=== PATIENT | female | born 1990 | race Caucasian/White ===

== ENCOUNTER 2020-01-31 19:38 | Inpatient (IN) | payer OTHER ==
[~2020-01-31 19:38] MED LIST: Iopamidol-370 76% 500 ML 1 ML ONE
[2020-01-31] MEDS ORDERED: Dexamethasone 10 MG/ML VIAL ONE (19:55)
[2020-01-31] MEDS ORDERED: Albuterol 200 PUFF (6.7GM INHALER) ONE (20:03)
[2020-01-31 20:14] LABS: #Basophils 0.1 thou/uL (0.0-0.2); #Eosinphils 0.1 thou/uL (0.0-0.7); #Lymphocytes 1.4 thou/uL (1.20-3.40); #Monocytes 0.4 thou/uL (0.11-0.59); #Neutrophils 6.7 thou/uL (1.40-6.50); %Basophils 0.9 % (0.0-1.0); %Eosinophils 0.7 % (0.0-10.0); %Lymphocytes 16.2 % (21.0-51.0); %Monocytes 4.8 % (0.0-10.0); %Neutrophils 77.4 % (42.0-75.0); Hemoglobin 13.4 g/dL (12.0-16.0); Mean Corpuscular HGB CONC 34.7 g/dL (32.0-36.0); Mean Corpuscular Hemoglobin 30.6 pg (27.0-31.0); Mean Corpuscular Volume 88.3 fL (78.0-98.0); Mean Platelet Volume 7.6 fL (7.4-10.4); Platelet Count 189 thou/uL (130-400); RBC Distribution Width 12.8 % (11.5-14.5); Red Blood Cell (RBC) Count 4.38 mill/uL (4.20-5.40); White Blood Cell (WBC) Count 8.7 thou/uL (4.8-10.8)
[2020-01-31 20:19] LABS: Bacteria/HPF 2+ HPF (None Seen); Bilirubin Negative (Negative); Blood, Urine Negative (Negative); Clarity Clear (Clear); Glucose, Urine (Dipstick) Normal (Negative); Ketone, Urine Negative (Negative); Leukocyte 250 Leu/uL (Negative); Nitrite Negative (Negative); Protein, Urine (Dipstick) Negative (Neg-Trace); RBC/HPF 0-3 HPF (0-3); Specific Gravity, Urine 1.002 (1.002-1.036); Urobilinogen Normal mg/dL (Less than 2)
--- NOTE | 2020-01-31 20:32 | RAD ---
Chest one view HISTORY: Dyspnea. COMPARISON: 05/17/2009. FINDINGS: Cardiac silhouette is magnified by projection. Pulmonary vasculature upper limits of normal . Ill-defined patchy groundglass infiltrate involves each lower lobe. No lobar consolidation or evidenc e of pneumothorax. IMPRESSION : Multifocal bilateral lower lobe infiltrate. Clinical correlation regarding other signs and symptoms o f multifocal viral pneumonia is required.
[2020-01-31 20:34] LABS: ALT (SGPT) 13 U/L (8-55); AST (SGOT) 37 U/L (5-34); Albumin 4.4 g/dL (3.5-5.0); Alkaline Phosphatase 61 U/L (40-110); Anion Gap 13 mmol/L (10-20); BUN (Urea Nitrogen) 5 mg/dL (7.0-18.7); Calc. Creatinine Clearance 0 mL/min (70-130); Calcium 8.5 mg/dL (7.8-10.44); Carbon Dioxide 27 mmol/L (22-29); Chloride 100 mmol/L (98-107); Globulin 3.5 g/dL (2.4-3.5); Glucose 93 mg/dL (70-105); Potassium 3.4 mmol/L (3.5-5.1); Protein, Total 7.9 g/dL (6.0-8.3); Sodium 137 mmol/L (136-145)
[2020-01-31] MEDS ORDERED: Acetaminophen 500 MG TAB ONE (20:54)
[2020-01-31] MEDS ORDERED: Ketorolac Tromethamine 30 MG/ML VIAL ONE (20:54)
[2020-01-31] MEDS ORDERED: Ondansetron PF 4 MG/2 ML Vial ONE (21:03)
[2020-01-31] MEDS ORDERED: Sodium Chloride 0.9% 100 ML ONE (21:10)
[2020-01-31] MEDS ORDERED: cefTRIAXone\\ROCEPHIN 1 GM VIAL ONE (21:10)
--- NOTE | 2020-01-31 22:23 | CT ---
CT arteriogram chest with IV contrast and 3-D imaging HISTORY: Dyspnea. Elevated d-dimer. FINDINGS: There is good contrast opacification pulmonary arteries and thoracic aorta with normal bran rashmi of the great vessels at the aortic arch. Prominent scattered peripheral bilateral patchy areas of groundglass infiltrate involve each lung. No nspecific, reactive appearing lymph nodes are scattered about the mediastinum. Minimal left pleural fluid. No evidence of pneumothorax. IMPRESSION : No evidence of pulmonary embolus. CT findings of COVID pneumonitis.
[2020-01-31 22:45] LABS: SARS-CoV-2 NAA Rapid Test Not Detected (NotDetected)
--- NOTE | 2020-01-31 22:56 | PDOC.FPRHP ---
- History of Present Illness Chief Complaint: SOB History of Present Illness: Pt is a 29 yo F with PMH, anxiety of hypothyroidism who presents with chief complaint of SOB. She endorses worsening cough and SOB. She has associated congestion, PIMENTEL, fever. She states her symptoms started on 01/24. She has several COVID tests over the last few weeks and all were negative. She has many COVID exposures including her , nephew and 5 close co-workers. 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1, Has R ocular prosthesis FHx:non contributory Social: tobacco use for 10 years occasional marijuana and etoh - Review of Systems General: reports: fever/chills ENT: reports: nasal congestion, rhinorrhea Respiratory: reports: cough, shortness of breath, exercise intolerance Cardiovascular: denies: chest pain, palpitation, edema Gastrointestinal: denies: vomiting, diarrhea, abdominal pain Skin: denies: rashes, lesions Musculoskeletal: denies: swelling Neurological: denies: seizure, weakness - Vital signs BP: 123/80 HR: 93 RR: 18 Tmax: 101.3 Pox: 96% on 2L Wt: 90.2kg - Physical Exam Constitutional: NAD, awake, alert and oriented HEENT: normocephalic and atraumatic, EOMI, grossly normal vision, grossly normal hearing Neck: supple, trachea midline Chest: no-tender to palpation, no lesions Heart: RRR, normal S1/S2 Lungs: good air movement, other (bilat basilar insp fine crackles) Abdomen: soft, non-tender Musculoskeletal: normal structure Neurological: no focal deficit, CN II-XII intact, normal sensation Skin: no rash/lesions, good turgor Heme/Lymphatic: no unusual bruising or bleeding Psychiatric: normal mood and affect, good judgment and insight FMR H&P: Results - Labs Result Diagrams: 02/01/20 05:17 02/01/20 05:17 Lab results: WBC 8.7 thou/uL (4.8-10.8) 01/31/20 19:50 Hgb 13.4 g/dL (12.0-16.0) 01/31/20 19:50 Hct 38.7 % (36.0-47.0) 01/31/20 19:50 MCV 88.3 fL (78.0-98.0) 01/31/20 19:50 Plt Count 189 thou/uL (130-400) 01/31/20 19:50 Neutrophils % 77.4 % (42.0-75.0) H 01/31/20 19:50 Sodium 137 mmol/L (136-145) 01/31/20 19:50 Potassium 3.4 mmol/L (3.5-5.1) L 01/31/20 19:50 Chloride 100 mmol/L (98-107) 01/31/20 19:50 Carbon Dioxide 27 mmol/L (22-29) 01/31/20 19:50 BUN 5 mg/dL (7.0-18.7) L 01/31/20 19:50 Creatinine 1.06 mg/dL (0.6-1.1) 01/31/20 19:50 Glucose 93 mg/dL (70-105) 01/31/20 19:50 Lactic Acid 0.8 mmol/L (0.5-2.2) 01/31/20 19:50 Calcium 8.5 mg/dL (7.8-10.44) 01/31/20 19:50 Total Bilirubin 1.0 mg/dL (0.2-1.2) 01/31/20 19:50 AST 37 U/L (5-34) H 01/31/20 19:50 ALT 13 U/L (8-55) 01/31/20 19:50 Alkaline Phosphatase 61 U/L (40-110) 01/31/20 19:50 Serum Total Protein 7.9 g/dL (6.0-8.3) 01/31/20 19:50 Albumin 4.4 g/dL (3.5-5.0) 01/31/20 19:50 Urine Ketones Negative mg/dL (Negative) 01/31/20 19:45 Urine Blood Negative (Negative) 01/31/20 19:45 Urine Nitrite Negative (Negative) 01/31/20 19:45 Ur Leukocyte Esterase 250 Sara/uL (Negative) A 01/31/20 19:45 Urine RBC 0-3 HPF (0-3) 01/31/20 19:45 Urine WBC 4-6 HPF (0-3) A 01/31/20 19:45 Ur Squamous Epith Cells 4-6 HPF (0-3) A 01/31/20 19:45 Urine Bacteria 2+ HPF (None Seen) A 01/31/20 19:45 FMR H&P: A/P - Plan #Acute Hypoxic respiratory failure 2/2 likely COVID PNA -negative COVID today in the ED, but many close contacts -CT and XR are suggestive of COVID PNA. likely false negative -symptom onset 01/25/20 -satting well on 2L of O2, new oxygen requirement -s/p Rocephin and 10mg Decadron in ED -f/u COVID labs -continue Decadron 6mg daily -f/u flu -consider retest in a few days #Hypothyroidism -aware, continue home meds #Anxiety -aware, continue home meds Dispo: admit to inpatient medical Fluids: KVO Diet: Regular DVT Ppx: Lovenox Code: FULL FMR H&P: Upper Level - Plan Date/Time: 01/31/20 7490 MACIE Shields PGY3, have evaluated this patient and agree with findings/plan as outlined by campus interviews intern resident. Pertinent changes/additions are listed here. 29-year-old female with past medical history of anxiety and hypothyroidism presents for shortness of breath. She has 1 week history increasing fevers headaches chills cough and congestion. She has significant exposure to Covid positive people with her her nephew her best friend and 5 close cowork ers. She has been tested several times in the last week but has tested negative so far. 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 Habits include occasional alcohol and occasional marijuana, former smoker for 8 years. On physical exam the patient is hypoxic on respiratory room air and currently satting 96% on 2 L. Otherwise vitals within normal limits. She does not appear to be in any distress, heart has regular rate and rhythm with no murmur, lungs have bilateral inspiratory fine crackles in lung bases but with good air movement Assessment and plan Hypoxic respiratory failure secondary to viral pneumonia Suspect COVID-19 infection despite several negative tests considering imaging findings, exam and impressive exposure history. Chest x-ray and CT angio are suggestive of viral pneumonia with no evidence of pulmonary embolism. Troponin negative. Will admit for respiratory support, give steroids daily, will give Lovenox for thromboembolism prophylaxis as if she were positive, consider retesting in a few days. Will add flu swab, covid inflammatory labs, and procal. Patient is status post 1 dose of Rocephin. Hold further ABX for now. Hypokalemia Replace and recheck Hypothyroid Continue home medications Anxiety Continue home medications Code-full IV fluids-KVO PCP-city call Disposition-inpatient medical, anticipate 2 midnights at least DVT prophylaxis-Lovenox Addendum - Attending - Attending Attestation Date/Time: 02/01/20 1779 I personally evaluated the patient and discussed the management with Dr. Etienne/Favian. I agree with the History, Examination, Assessment and Plan documented above with any addition or exceptions noted below. Patient here with acute hypoxic resp failure 2/2 viral pneumonitis. She has multiple exposures to COVID, yet the several tests she supposedly had done outpatient and her PCR test here have been negative. Regardless, she has evidence of viral pneumonia on CXR. Labs overall reassuring. She will be treated symptomatically, wean O2 as tolerated. Steroids. Will test for antibodies to see if this is possibly a longer range postinfectious picture and maybe she had COVID days before she realized. RVP to rule out other viral causes of her pneumonitis as we have to entertain other diagnoses than COVID. Finally, this could represent a false negative test, but that becomes less likely with multiple negative tests that she has supposedly received.
[2020-01-31] MEDS ORDERED: Senokot S 8.6-50 MG TAB PO PRN (23:02)
[2020-01-31] MEDS ORDERED: Ondansetron PF 4 MG/2 ML Vial IVP PRN (23:02)
[2020-01-31] MEDS ORDERED: Acetaminophen 325 MG TAB PO PRN (23:02)
[2020-01-31] MEDS ORDERED: Ondansetron ODT 4 MG TAB PO PRN (23:02)
[2020-01-31] MEDS ORDERED: Calcium Carbonate 500 MG ChewTAB PO PRN (23:02)
[2020-02-01] MEDS ORDERED: Albuterol 200 PUFF (6.7GM INHALER) INH PRN (00:45)
[2020-02-01] MEDS ORDERED: Potassium Chloride 20 MEQ TAB PO SCH (00:45)
[2020-02-01 00:52] LABS: Magnesium 2.2 mg/dL (1.6-2.6); Phosphorus 2.7 mg/dL (2.3-4.7)
[2020-02-01 01:07] VITALS: BMI 34.0
[2020-02-01] MEDS: Levothyroxine Sodium 125 MCG TAB PO SCH (05:16)
--- NOTE | 2020-02-01 05:43 | PDOC.FM ---
- Subjective Subjective: Pt resting in bed this AM. No acute events overnight. States that she feels that her breathing is better this AM with the NC and steroids but still c/o of a non- productive cough. Informs me that now her GM is in the hospital with COVID+ PNA. - Objective Vital Signs & Weight: Vital Signs (12 hours) Temp Pulse Resp BP Pulse Ox 02/01/20 00:47 98.9 F 89 18 99/67 97 Weight Weight 95.663 kg Result Diagrams: 02/01/20 05:17 02/01/20 05:17 Phys Exam - Physical Examination Constitutional: NAD HEENT: PERRLA Neck: supple Respiratory: no wheezing, no rales, no rhonchi, clear to auscultation bilateral Cardiovascular: RRR, no significant murmur, no rub Gastrointestinal: soft, non-tender, no distention, positive bowel sounds Musculoskeletal: no edema Neurological: moves all 4 limbs Psychiatric: normal affect Skin: normal turgor Dx/Plan - Plan Plan: #Acute Hypoxic respiratory failure 2/2 likely COVID PNA -Negative COVID test, however patient had many close contacts including family members and co-workers -CT and XR are suggestive of COVID PNA. likely false negative -Was satting well on 2L of O2 decreased to RA to see how patient does -Flu negative -D-dimer 0.81-->0.79 -LDH 530 -CRP 5 -Procal 0.03-->0.03 -continue Decadron 6mg daily -consider retest for COVID in a few days -Respiratory Viral Panel ordered #Hypothyroidism -aware, continue home meds #Anxiety -aware, continue home meds Fluids: KVO Diet: Regular DVT PPX: Lovenox Code: FULL Dispo: Admitted to inpatient medical. Will continue to monitor respiratory status. If see improvement later today may be stable enough for d/c. Addendum - Attending - Attending Attestation Date/Time: 02/01/20 [id number] I personally evaluated the patient and discussed the management with Dr. Cade. I agree with the History, Examination, Assessment and Plan documented above with any addition or exceptions noted below. See H&P addendum for today's full attestation.
[2020-02-01 05:47] LABS: #Monocytes 0.3 thou/uL (0.11-0.59); #Neutrophils 6.6 thou/uL (1.40-6.50); %Basophils 0.1 % (0.0-1.0); %Eosinophils 0.5 % (0.0-10.0); %Lymphocytes 12.2 % (21.0-51.0); %Monocytes 3.4 % (0.0-10.0); %Neutrophils 83.8 % (42.0-75.0); Hemoglobin 12.2 g/dL (12.0-16.0); Mean Corpuscular HGB CONC 34.5 g/dL (32.0-36.0); Mean Corpuscular Hemoglobin 30.7 pg (27.0-31.0); Mean Platelet Volume 7.8 fL (7.4-10.4); Platelet Count 176 thou/uL (130-400); RBC Distribution Width 12.8 % (11.5-14.5); Red Blood Cell (RBC) Count 3.98 mill/uL (4.20-5.40); White Blood Cell (WBC) Count 7.8 thou/uL (4.8-10.8)
[2020-02-01 06:10] LABS: ALT (SGPT) 14 U/L (8-55); AST (SGOT) 32 U/L (5-34); Albumin 3.9 g/dL (3.5-5.0); Alkaline Phosphatase 56 U/L (40-110); Anion Gap 13 mmol/L (10-20); BUN (Urea Nitrogen) 6 mg/dL (7.0-18.7); Bilirubin, Total 0.7 mg/dL (0.2-1.2); Calc. Creatinine Clearance 143 mL/min (70-130); Calcium 8.2 mg/dL (7.8-10.44); Carbon Dioxide 24 mmol/L (22-29); Chloride 103 mmol/L (98-107); Globulin 3.4 g/dL (2.4-3.5); Glucose 145 mg/dL (70-105); Potassium 4.4 mmol/L (3.5-5.1); Protein, Total 7.3 g/dL (6.0-8.3); Sodium 136 mmol/L (136-145)
[2020-02-01] MEDS: Enoxaparin Sodium 40 MG/0.4 ML SYRINGE SC SCH ×2 (07:43→21:06)
[2020-02-01] MEDS: Escitalopram Oxalate 10 mg Tablet PO SCH (07:44)
[2020-02-01] MEDS ORDERED: Dexamethasone 4 MG TAB PO SCH (08:00)
[2020-02-01] MEDS ORDERED: REMDESIVIR (EUA) 200 MG in Sodium Chloride 0.9% 250 ML 210 ML IV SCH (08:00)
[2020-02-01] MEDS ORDERED: methylPREDNISolone 4 mg Tablet PO SCH (09:00)
[2020-02-01 13:10] LABS: SARS-CoV-2 MS2 Positive; SARS-CoV-2 N Gene Negative; SARS-CoV-2 S Gene Negative; SARS-CoV-2 by NAA Not Detected (NotDetected); SARS-CoV-2 orf1ab Negative
[2020-02-01] MEDS: Diabetic Tussin 200 MG/10 ML UDCUP PO PRN (14:27)
[2020-02-01 17:28] LABS: SARS-CoV-2 IgG Ab Non-Reactive (NonReactive); SARS-CoV-2 IgG Index 0.11 S/CO (< 1.40)
[2020-02-02] MEDS: Levothyroxine Sodium 125 MCG TAB PO SCH (05:37)
--- NOTE | 2020-02-02 05:40 | PDOC.FM ---
- Subjective Subjective: Pt resting comfortably in bed this AM. No acute events overnight. States that she continues to have a non-productive cough which is drying her throat. She states that she was weaned off of oxygen yesterday but was having some SOB when going to the bathroom so she put herself back on her oxygen. States that her appetite is still slim but has been drinking fluids. - Objective Vital Signs & Weight: Vital Signs (12 hours) Temp Pulse Resp BP Pulse Ox 02/02/20 03:00 97.6 F 60 18 95/55 L 95 02/01/20 23:00 98.6 F 66 18 92/61 98 02/01/20 19:00 98.4 F 64 18 111/77 97 Weight Weight 95.663 kg Result Diagrams: 02/02/20 05:19 02/02/20 05:19 Phys Exam - Physical Examination Constitutional: NAD on 1L NC at this time Neck: supple Respiratory: no wheezing, no rales, no rhonchi, clear to auscultation bilateral Cardiovascular: RRR, no significant murmur, no rub Gastrointestinal: soft, non-tender, no distention, positive bowel sounds Musculoskeletal: pulses present Neurological: moves all 4 limbs Psychiatric: normal affect, A&O x 3 Skin: normal turgor Dx/Plan - Plan Plan: #Acute Hypoxic respiratory failure 2/2 likely COVID PNA -Negative COVID test, however patient had many close contacts including family members and co-workers -CT and XR are suggestive of COVID PNA. likely false negative -Respiratory Viral Panel neg -COVID PCR neg x2 -COVID Ab neg -Currently saturating: at 95% on 1L NC -Changed decadron to medrol 01/31 #Hypothyroidism -aware, continue home meds #Anxiety -aware, continue home meds Fluids: KVO Diet: Regular DVT PPX: Lovenox Code: FULL Dispo as of 02/01: Admitted to inpatient medical. Will continue to monitor respiratory status today and will monitor for improvement. Addendum - Attending - Attending Attestation Date/Time: 02/02/20 [id number] I personally evaluated the patient and discussed the management with Dr. Cade. I agree with the History, Examination, Assessment and Plan documented above with any addition or exceptions noted below. Patient here with suspicion for COVID pneumonia with associated hypoxia. However, she has now had 2 PCR here that were negative, and her antibody studies do not show any evidence of previous infection. Therefore, she either is a very rare case which continues to have multiple negative tests for COVID, or she does not have COVID. Her RVP was negative for the presence of other viral etiologies. Regardless, she receives symptomatic treatment. Wean O2 as tolerated, continue steroids. No evidence of bacterial infection. She continues on isolation precautions.
[2020-02-02 06:00] LABS: #Lymphocytes 1.9 thou/uL (1.20-3.40); #Monocytes 0.7 thou/uL (0.11-0.59); #Neutrophils 7.5 thou/uL (1.40-6.50); %Basophils 0.1 % (0.0-1.0); %Eosinophils 0.4 % (0.0-10.0); %Lymphocytes 18.5 % (21.0-51.0); %Monocytes 6.6 % (0.0-10.0); %Neutrophils 74.4 % (42.0-75.0); Hemoglobin 11.1 g/dL (12.0-16.0); Mean Corpuscular HGB CONC 34.9 g/dL (32.0-36.0); Mean Corpuscular Hemoglobin 30.7 pg (27.0-31.0); Mean Corpuscular Volume 88.1 fL (78.0-98.0); Mean Platelet Volume 7.7 fL (7.4-10.4); Platelet Count 214 thou/uL (130-400); RBC Distribution Width 12.8 % (11.5-14.5); Red Blood Cell (RBC) Count 3.63 mill/uL (4.20-5.40); White Blood Cell (WBC) Count 10.1 thou/uL (4.8-10.8)
[2020-02-02 06:12] LABS: ALT (SGPT) 12 U/L (8-55); AST (SGOT) 25 U/L (5-34); Albumin 3.8 g/dL (3.5-5.0); Alkaline Phosphatase 48 U/L (40-110); Anion Gap 14 mmol/L (10-20); BUN (Urea Nitrogen) 8 mg/dL (7.0-18.7); Bilirubin, Total 0.8 mg/dL (0.2-1.2); Calc. Creatinine Clearance 143 mL/min (70-130); Calcium 7.8 mg/dL (7.8-10.44); Carbon Dioxide 25 mmol/L (22-29); Chloride 103 mmol/L (98-107); Globulin 2.9 g/dL (2.4-3.5); Glucose 98 mg/dL (70-105); Potassium 3.9 mmol/L (3.5-5.1); Protein, Total 6.7 g/dL (6.0-8.3); Sodium 138 mmol/L (136-145)
[2020-02-02] MEDS ORDERED: Chloraseptic Spray 180 ml Bottle PO PRN (07:32)
[2020-02-02] MEDS ORDERED: Enoxaparin Sodium 40 MG/0.4 ML SYRINGE SC SCH (07:45)
[2020-02-02] MEDS ORDERED: REMDESIVIR (EUA) 100 MG in Sodium Chloride 0.9% 250 ML 230 ML IV SCH (08:00)
[2020-02-02] MEDS ORDERED: methylPREDNISolone 4 mg Tablet PO SCH (09:00)
[2020-02-02] MEDS ORDERED: methylPREDNISolone Sod Succ 40 MG VIAL IVP SCH (09:30)
[2020-02-02] MEDS: Diabetic Tussin 200 MG/10 ML UDCUP PO PRN ×3 (09:40→17:50)
[2020-02-02] MEDS: Escitalopram Oxalate 10 mg Tablet PO SCH (09:41)
[2020-02-03] MEDS: Levothyroxine Sodium 125 MCG TAB PO SCH (05:15)
--- NOTE | 2020-02-03 06:09 | PDOC.FM ---
- Subjective Subjective: Pt resting comfortably in bed this AM. No acute events overnight. Slept without her NC last night and saturated around 93-95% all night. Denies SOB with ambulation and resting. - Objective Vital Signs & Weight: Vital Signs (12 hours) Temp Pulse Resp BP Pulse Ox 02/03/20 04:00 97.8 F 60 20 93/61 93 L 02/03/20 02:00 93 L 02/03/20 00:00 98.2 F 62 20 107/70 92 L 02/02/20 20:00 98.9 F 59 L 20 96/66 93 L Weight Weight 95.663 kg Result Diagrams: 02/03/20 05:38 02/03/20 05:38 Phys Exam - Physical Examination Constitutional: NAD HEENT: moist MMs Neck: supple Respiratory: no wheezing, no rales, no rhonchi, clear to auscultation bilateral Cardiovascular: RRR, no significant murmur, no rub Gastrointestinal: soft, non-tender, no distention, positive bowel sounds Musculoskeletal: pulses present Neurological: moves all 4 limbs Psychiatric: normal affect, A&O x 3 Skin: normal turgor Dx/Plan - Plan Plan: #Acute Hypoxic respiratory failure 2/2 likely COVID PNA -Negative COVID test, however patient had many close contacts including family members and co-workers -CT and XR are suggestive of COVID PNA. Likely false negative -Respiratory Viral Panel neg -COVID PCR neg x2 -COVID Ab neg -Currently saturating: on RA at 94% -Continuing on solumedrol IV for now #Hypothyroidism -aware, continue home meds #Anxiety -aware, continue home meds Fluids: KVO Diet: Regular DVT PPX: Lovenox Code: FULL Dispo as of 02/02: Admitted to inpatient medical. Will continue to monitor respiratory status with ambulation without NC today. Hopeful that we can seem some improvement today. Will transition steroids to PO today. Pt might need to be sent home with home O2.
[2020-02-03 06:13] LABS: #Basophils 0.1 thou/uL (0.0-0.2); #Lymphocytes 2.1 thou/uL (1.20-3.40); #Monocytes 0.6 thou/uL (0.11-0.59); #Neutrophils 6.6 thou/uL (1.40-6.50); %Basophils 0.6 % (0.0-1.0); %Eosinophils 0.5 % (0.0-10.0); %Lymphocytes 21.9 % (21.0-51.0); %Monocytes 6.7 % (0.0-10.0); %Neutrophils 70.3 % (42.0-75.0); Hemoglobin 11.2 g/dL (12.0-16.0); Mean Corpuscular HGB CONC 34.8 g/dL (32.0-36.0); Mean Corpuscular Hemoglobin 30.8 pg (27.0-31.0); Mean Corpuscular Volume 88.4 fL (78.0-98.0); Mean Platelet Volume 7.5 fL (7.4-10.4); Platelet Count 218 thou/uL (130-400); RBC Distribution Width 12.8 % (11.5-14.5); Red Blood Cell (RBC) Count 3.63 mill/uL (4.20-5.40); White Blood Cell (WBC) Count 9.4 thou/uL (4.8-10.8)
[2020-02-03 06:38] LABS: ALT (SGPT) 12 U/L (8-55); AST (SGOT) 20 U/L (5-34); Albumin 3.7 g/dL (3.5-5.0); Alkaline Phosphatase 48 U/L (40-110); Anion Gap 13 mmol/L (10-20); BUN (Urea Nitrogen) 12 mg/dL (7.0-18.7); Bilirubin, Total 0.6 mg/dL (0.2-1.2); Calc. Creatinine Clearance 132 mL/min (70-130); Calcium 8.3 mg/dL (7.8-10.44); Carbon Dioxide 26 mmol/L (22-29); Chloride 103 mmol/L (98-107); Globulin 2.9 g/dL (2.4-3.5); Glucose 83 mg/dL (70-105); Potassium 3.9 mmol/L (3.5-5.1); Protein, Total 6.6 g/dL (6.0-8.3); Sodium 138 mmol/L (136-145)
[2020-02-03] MEDS: Escitalopram Oxalate 10 mg Tablet PO SCH (08:54)
[2020-02-03] MEDS ORDERED: Enoxaparin Sodium 40 MG/0.4 ML SYRINGE SC SCH (09:00)
[2020-02-03] MEDS ORDERED: methylPREDNISolone Sod Succ 40 MG VIAL IVP SCH (09:00)
[2020-02-03] MEDS ORDERED: Dexamethasone 4 MG TAB PO SCH (10:30)
--- NOTE | 2020-02-03 14:29 | PRG ---
DATE OF SERVICE: 02/03/2020 Ms. Cifuentes is a pleasant 29-year-old lady who was admitted with acute hypoxic respiratory failure secondary to some type of viral pneumonia. She has had numerous exposures to COVID however. Repeated COVID tests including PCR have been negative. In the event from a symptom standpoint, she has markedly improved and is maintaining O2 saturations of 95% on room air while exercising. She will be discharged to complete a course of Decadron. We will follow up closely with her PCP. Job ID: [id number]
[2020-02-03 16:47] VITALS: BP 102/67; TEMP 98.6
[2020-02-03 20:52] LABS: SARS-CoV-2 IgG Ab Reactive (NonReactive)
--- NOTE | 2020-02-04 01:44 | DIS ---
DATE OF ADMISSION: 01/31/2020 DATE OF DISCHARGE: 02/03/2020 RESIDENT: Natalie Cade DO. ADMITTING ATTENDING: Julien Najera MD. DISCHARGE ATTENDING: Allen Carmona MD CONSULTS: None. PROCEDURES: Chest x-ray done on 01/31/2020 showed multifocal bilateral lower lobe infiltrate. CTA done on 01/31/2020 showed no evidence of pulmonary embolism. CT findings of COVID pneumonia. PRIMARY DIAGNOSIS: Acute hypoxic respiratory failure secondary to viral pneumonia. SECONDARY DIAGNOSES: Hypothyroidism, anxiety. DISCHARGE MEDICATIONS: 1. Decadron 6 mg for 7 days. 2. Synthroid 125 mcg p.o. daily. 3. Lexapro 10 mg p.o. daily. DISCONTINUED MEDICATIONS: None. HISTORY OF PRESENT ILLNESS/HOSPITAL COURSE: This is a 29-year-old female with past medical history as above, who with presented with a chief complaint of shortness of breath. She had endorsed worsening cough and shortness of breath. She had associated congestion, headache, fever. She states her symptoms started on 01/25/2020. She had several COVID tests done over the past few weeks and all were negative. However, she had endorsed many COVID exposures including her , nephew, 5 close coworkers, her grandmother. She did not use any home oxygen, but was initially requiring 2 L in the emergency department. The patient was worked up for a viral pneumonia. The patient had 2 COVID PCRs which were negative; respiratory viral panel which was negative as well as COVID antibodies which were also negative. The patient initially continued to require at least 2 L of oxygen on nasal cannula, saturating in the high 90. She was given 3 days of steroids with some improvement in her breathing; however, she continued to endorse cough. Patient's symptoms did not frame changer hospitalization. Prior to discharge, the patient was able to walk around the room and sleep without oxygen and remained saturating in the mid 90s. Discussed with patient that it would be a bit of a long course to full recovery and that she would have to have additional steroids for a week. She was told to treat her symptoms symptomatically with rest, fluids, antipyretics, and cough medication. She was told to have close followup with her primary care physician. ER precautions were given. DISPOSITION: Stable. DISCHARGE INSTRUCTIONS: Location: Home. Diet: Regular. Activity: As tolerated. Follow up within 7 days with primary care physician. Job ID: [id number]
[2020-02-04] MEDS ORDERED: Dexamethasone 4 MG TAB PO SCH (08:00)
[2020-02-06] MEDS ORDERED: FLU VACC QS2020-21(6MOS UP)/PF 60 MCG/0.5 ML SYRINGE IM ONE (09:00)
== END 2020-02-03 17:47 | disposition home or self-care (01) | DRG 193 ==
LOC: ERS 19:38 → T4-A 23:02
PROVIDERS: ADMIT Student in an Organized Health Care Education/Training Program; ATTEND Student in an Organized Health Care Education/Training Program
PROC: 8E0ZXY6 Isolation (ICD-10-PCS; principal; 2020-01-31)
DX: J12.9 Viral pneumonia, unspecified (principal); J96.01 Acute respiratory failure with hypoxia; Z20.828 Contact with and (suspected) exposure to other viral communicable diseases; Z23 Encounter for immunization; E03.9 Hypothyroidism, unspecified; F41.9 Anxiety disorder, unspecified; E87.6 Hypokalemia; Z83.1 Family history of other infectious and parasitic diseases; Z79.899 Other long term (current) drug therapy; Z79.890 Hormone replacement therapy; Z87.891 Personal history of nicotine dependence
CPT/HCPCS: 36415; 71045; 71275; 80053; 81003; 81015; 82728; 83605; 83615; 83735; 84100; 84145; 84484; 85025; 85379; 86140; 86769; 87040; 87633; 87635; 87798; 87804; 93005; 96365; 96375; J0696; J1100; J1650; J1885; J2405; J2920; J3490; J8540; Q9967; U0002; U0003